=== PATIENT | female | born 1945 | race Caucasian/White ===

== ENCOUNTER 2016-12-28 11:17 | Emergency (ER) | payer OTHER ==
[2016-12-28] MEDS ORDERED: NORFLEX INJ ONE (12:04)
[2016-12-28] MEDS ORDERED: TORADOL 60 MG VIAL ONE (12:05)
--- NOTE | 2016-12-28 13:34 | DR.GENAD ---
HPI - HPI Comment HPI Comment: SUDDEN ONSET LOWER BACK PAIN THAT IS WORSE THIS AM. NO FEVER. NO DYSURIA. - Complaint/Symptoms Chief Complaint Doctors Comments: BACK PAIN FOR SEVERAL HOURS. - Nurses notes reviewed Nurses Notes Review: Yes - Source History Provided: Patient, Family Member - Mode of Arrival Mode of Arrival: Wheelchair - Timing Came on: Suddenly - Duration Duration: Constant Duration: Hours - Severity Severity: Moderate ROS - Review of Systems Constitutional: No Symptoms Reported Eyes: No Symptoms Reported ENTM: No Symptoms Reported Respiratoy: No Symptoms Reported Cardiovascular: No Symptoms Reported Gastrointestinal/Abdominal: negative: Nausea, Vomiting Genitourinary: negative: Dysuria, Frequency, Hematuria Neurological: No Symptoms Reported Musculoskeletal: Back Pain, Back Integumentary: No Symptoms Reported Hematologic/Lymphatic: No Symptoms Reported Endocrine: No Symptoms Reported All Other Systems: Reviewed and Negative PE - Vital Signs Vitals: Temperature 98.4 F Pulse Rate 77 Respiratory Rate 20 Blood Pressure 144/90 O2 Sat by Pulse Oximetry 97 - General Limitations: No Limitations General Appearance: Alert - Head Head Exam: Normal Inspection - Eyes Eye exam: Normal Appearance - ENT ENT Exam: Normal External Ear Exam External Ear Exam: Normal External Inspection TM/Canal Exam: Bilateral Normal Nose Exam: Normal Nose Exam Mouth Exam: Normal Inspection Throat Exam: Normal Inspection - Neck Neck Exam: Normal Inspection, Trachea Midline - Chest Chest Inspection: Symmetric Chest Wall Rise - Respiratory Respiratory Exam: Normal Lung Sounds Bilat Respiratory Exam: Bilateral Clear to Auscultation - Abdominal Exam Abdominal Exam: Normal Bowel Sounds, Soft. negative: Tenderness - Back Back Exam: Normal Inspection (SPINE TENDERNESS.), (L) CVA Tenderness, Vertebral Tenderness - Neurologic Neurological Exam: Oriented X3 - Psychiatric Psychiatric Exam: Normal Affect, Normal Mood - Skin Skin Exam: Normal Color MDM - Additional Information Additional Information Obtained From: Family - Differential Diagnosis Differential Diagnosis: LOW BACK PAIN, UTI Course - Treatment Treatment: SEE ORDERS. - Education/Counseling Education/Counseling: Patient, Family, Education Educated On: Treatment, Diagnosis, Needs for Follow Up ROR - Labs Reviewed Laboratory: Specimen Type Clean catch urine 12/28/16 12:55 Urine Color Yellow (YELLOW) 12/28/16 12:55 Urine Appearance Clear (CLEAR) 12/28/16 12:55 Urine pH 6.0 (5.0 - 8.0) 12/28/16 12:55 Ur Specific [place] 1.010 (1.000-1.030) 12/28/16 12:55 Urine Protein Negative (NEGATIVE) 12/28/16 12:55 Urine Glucose (UA) 4+ (NEGATIVE) 12/28/16 12:55 Urine Ketones Negative (NEGATIVE) 12/28/16 12:55 Urine Occult Blood 2+ (NEGATIVE) 12/28/16 12:55 Urine Nitrite Negative (NEGATIVE) 12/28/16 12:55 Urine Bilirubin Negative (NEGATIVE) 12/28/16 12:55 Urine Urobilinogen Normal (NORMAL) 12/28/16 12:55 Ur Leukocyte Esterase Negative (NEGATIVE) 12/28/16 12:55 Urine RBC 2-5 /HPF (NEGATIVE) 12/28/16 12:55 Urine WBC 0-3 /HPF (NEGATIVE) 12/28/16 12:55 Ur Squamous Epith Cells Moderate /HPF (NEGATIVE) 12/28/16 12:55 Urine Bacteria Trace /HPF (NEGATIVE) 12/28/16 12:55 Ur Culture Indicated? No/not indicated 12/28/16 12:55 - XRAY XRAY Interpreted by: Radiologist XRAY Findings: REPORT DISCUSS WITH PATIENT. - Diagnosis Discharge Problem: Back pain Qualifiers: Back pain location: low back pain Chronicity: acute Back pain laterality: bilateral Sciatica presence: without sciatica Qualified Code(s): M54.5 - Low back pain Cholelithiasis Qualifiers: Cholelithiasis location: gallbladder and bile duct Cholecystitis presence: without cholecystitis Biliary obstruction: without biliary obstruction Qualified Code(s): K80.70 - Calculus of gallbladder and bile duct without cholecystitis without obstruction - Discharge Plan Disposition: 01 HOME, SELF-CARE Condition: Stable Prescriptions: Cyclobenzaprine HCl [Flexeril] 5 mg PO TID PRN #15 tab PRN Reason: Muscle Spasms Ketorolac Tromethamine [Toradol Tab] 10 mg PO Q8H PRN #15 tab PRN Reason: Pain Ranitidine HCl [ZANTAC TAB 150 MG *] 150 mg PO BID #60 tab - Follow ups/Referrals Follow ups/Referrals: [facility],None [Primary Care Provider] - 2 days - Instructions Instructions: Cholelithiasis, Back Pain, Adult, [id number] Additional Instructions: RETURN TO ED IF WORSE.
[2016-12-28 13:43] VITALS: BP 144/90; BMI 25.4
[2016-12-28 13:54] LABS: COLOR,URINE YELLOW (YELLOW)
[2016-12-28 13:55] LABS: BILIRUBIN,URINE NEGATIVE (NEGATIVE); BLOOD/HEMOGLOBIN,URINE 2+ (NEGATIVE); GLUCOSE, URINE 4+ (NEGATIVE); KETONES,URINE NEGATIVE (NEGATIVE); LEUKOCYTE ESTERASE ,URINE NEGATIVE (NEGATIVE); NITRITES,URINE NEGATIVE (NEGATIVE); PROTEIN,URINE NEGATIVE (NEGATIVE); UROBILINOGEN,URINE NORMAL (NORMAL)
[2016-12-28 13:56] LABS: APPEARANCE,URINE CLEAR (CLEAR); BACTERIA,URINE TRACE /HPF (NEGATIVE); SQUAMOUS EPITHELIAL CELL,UR MODERATE /HPF (NEGATIVE)
--- NOTE | 2016-12-28 14:31 | CT ---
CT abdomen and pelvis without contrast Indication: Abdominal and back pain Comparison: None available Technique: Multiple axial images of the abdomen and pelvis were obtained from the lung bases to the pubic symphy sis without the administration of IV contrast. Radiation dose reduction techniques were performed utilizing adjustment for MA/kVP based on patient body size. Findings: The the lung bases are clear. Given the constraints of a noncontrast examination no focal hepatic les ion is identified. Multiple small gallstones are noted layering within the dependent gallbladder. No gallbladder wall thickening or distention of the gallbladder. The spleen, pancreas, adrenal glands an d right kidney are unremarkable. The left kidney contains a calcification of the renal artery otherwi se also is unremarkable. The upper GI tract demonstrates a small sliding hiatal hernia. No abnormalit y within the rectum or colon. The appendix is not identified. No inflammatory change or fluid within the right lower quadrant. No pelvic or adnexal mass. No pelvic free fluid. Abdominal aorta is normal in caliber with scattered calcified atherosclerotic disease. No acute osseous abnormality. Impression: 1.No acute inflammatory process identified within the abdomen or pelvis given the limitations of a no n contrast examination. 2.Cholelithiasis without CT evidence of acute cholecystitis. 3. Small sliding hiatal hernia. Reported By:
== END 2016-12-28 15:48 | disposition home or self-care (01) ==
LOC: ER 11:28
DX: K80.70 Calculus of gallbladder and bile duct without cholecystitis without obstruction (principal); M54.5 Low back pain; K44.9 Diaphragmatic hernia without obstruction or gangrene
CPT/HCPCS: 74176; 81001; 96372; 99283; J1885; J2360

== ENCOUNTER → 2017-02-08 | Outpatient (CLI) | payer OTHER ==
--- NOTE | 2017-02-10 09:57 | MG ---
Examination: Bilateral screening mammogram. Clinical history: Routine screening. Technique: Digital CC and MLO views of both breasts were obtained. Computer aided detection analysis was performed and used during the interpretation. Comparison: 12/11/2015. Findings: The breasts are heterogeneously dense. Benign-appearing calcifications and vascular calcifications ar e noted in the breasts bilaterally. Skin moles are present overlying the left breast. There is a questionable area of architectural distortion seen in the superior portion of the left alfonso ast in the mid to posterior depth. Additional imaging evaluation is recommended, with a spot compress ion magnification view in the MLO projection, a lateral view of the left breast and a left breast ult rasound. No suspicious mass, area of architectural distortion or suspicious cluster of microcalcifications is noted in the right breast. Impression: 1. Questionable area of architectural distortion in the left breast, as described above. BI-RADS category 0 (ZERO) - ASSESSMENT INCOMPLETE; ADDITIONAL IMAGING IS NEEDED. Recommend immediate recall for additional imaging evaluation, as described above. Diagnostic CAD was utilized and reviewed. * 0 (ZERO) - ASSESSMENT INCOMPLETE; ADDITIONAL IMAGING IS NEEDED. * 0C - ASSESSMENT INCOMPLETE, NEEDS ADDITIONAL IMAGING EVALUATION AND/OR PRIOR MAMMOGRAMS FOR COMPARI SON. * 1/ (ONE) - NEGATIVE. * 2/II (TWO) - BENIGN FINDINGS. * 3/III (THREE) - PROBABLY BENIGN FINDING; SHORT INTERVAL FOLLOW-UP SUGGESTED. * 4/IV (FOUR) - SUSPICIOUS ABNORMALITY; BIOPSY SHOULD BE CONSIDERED. * 5/V - HIGHLY SUSPICIOUS OF MALIGNANCY; BIOPSY SHOULD BE PERFORMED. * 6/IV - KNOWN BIOPSY PROVEN MALIGNANCY-APPROPRIATE ACTION SHOULD BE TAKEN. A NEGATIVE X-RAY REPORT SHOULD NOT DELAY BIOPSY IF A DOMINANT OR CLINICALLY SUSPICIOUS MASS IS PRESENT; 4 TO 8 PERCENT OF CANCERS ARE NOT IDENTIFIED BY X-RAY. A NEGATIVE REPORT MAY REINFORCE THE CLINICAL IMPRESSION. ADENOSIS AND DENSE BREASTS MAY OBSCURE AN UNDERLYING NEOPLASM. Reported By:
== END ==
LOC: RAD 09:54
PROVIDERS: ATTEND Internal Medicine
DX: Z12.31 Encounter for screening mammogram for malignant neoplasm of breast (principal)
CPT/HCPCS: 77067

== ENCOUNTER → 2017-03-02 | Outpatient (CLI) | payer OTHER ==
--- NOTE | 2017-03-02 14:25 | MG ---
ACR 2 HISTORY: Abnormal screening mammography with equivocal architectural distortion Left breast digital diagnostic mammography with CAD. Comparison: Multiple previous exams dating back to March 12, 2010 FINDINGS: ML and spot magnification MLO views of the left breast were obtained. Heterogeneously dense fibrogla ndular tissue is seen to be present with no persistent architectural distortion with the underlying b reast parenchyma assuming a similar appearance as compared to the more remote priors and without unde rlying suspicious mass. No skin thickening or nipple retraction is appreciated. No pathological ly mphadenopathy can be identified. Benign-appearing calcifications are noted. IMPRESSION: NO RADIOGRAPHIC EVIDENCE OF MALIGNANCY. ACR CATEGORY 2 - benign findings. FOLLOW-UP EXAM 1 YEAR. Diagnostic CAD was utilized and reviewed. * 0 (ZERO) - ASSESSMENT INCOMPLETE; ADDITIONAL IMAGING IS NEEDED. * 1/1 (ONE) - NEGATIVE. * 2/II (TWO) - BENIGN FINDINGS. * 3/III (THREE) - PROBABLY BENIGN FINDING; SHORT INTERVAL FOLLOW-UP SUGGESTED. * 4/IV (FOUR) - SUSPICIOUS ABNORMALITY; BIOPSY SHOULD BE CONSIDERED. * 5/V - HIGHLY SUSPICIOUS OF MALIGNANCY; BIOPSY SHOULD BE PERFORMED. A NEGATIVE X-RAY REPORT SHOULD NOT DELAY BIOPSY IF A DOMINANT OR CLINICALLY SUSPICIOUS MASS IS PRESENT; 4 TO 8 PERCENT OF CANCERS ARE NOT IDENTIFIED BY X-RAY. A NEGA TIVE REPORT MAY REINFORCE THE CLINICAL IMPRESSION. ADENOSIS AND DENSE BREASTS MAY OBSCURE AN UNDERLY ING NEOPLASM. Reported By:
== END ==
LOC: RAD 12:44
PROVIDERS: ATTEND Internal Medicine
DX: N64.59 Other signs and symptoms in breast (principal)
CPT/HCPCS: 77065